=== PATIENT | male | born 1990 | race Caucasian/White ===

== ENCOUNTER 2022-07-08 07:53 | Emergency (ER) | payer OTHER, SELFPAY ==
[2022-07-08 08:01] VITALS: BP 136/80; PULSE 96; RESP 18; TEMP 36.8; O2SAT 97
--- NOTE | 2022-07-08 08:30 | DI.CT_ITS ---
Exam(s) CT ABDOMEN PELVIS WO EXAM: CT ABDOMEN PELVIS WO CLINICAL HISTORY: left flank, lower quad and testicular pain. TECHNIQUE: Imaging Protocol: Axial computed tomography images with coronal and sagittal reformatted images were created and reviewed. COMPARISON: No exams were available for comparison FINDINGS: ABDOMEN: Lung Bases: Normal where visualized. Liver: Normal density. No measurable mass. Gallbladder and biliary tract: No radiodense calculus or biliary ductal dilation. Pancreas: Normal density, no abnormal calcifications or inflammatory process. Spleen: Normal. Kidneys: Normal size, contour and axis.There is bilateral nephrolithiasis. There is a 2 mm stone at the left UVJ with mild hydronephrosis. No masses seen. Adrenal glands: No mass is seen. Lymph nodes: Within normal limits. Abdominal Aorta: Abdominal portion non-dilated. PELVIS: Bladder:Symmetric distention, no gross wall thickening. Bowel: No obstruction or bowel wall thickening. Appendix is unremarkable. Peritoneal cavity: No ascites, collection or mesenteric inflammatory response. No free air. Reproductive organs: Unremarkable as visualized. Bones: Within normal limits. Soft Tissues: Within normal limits. IMPRESSION: 2 mm left UVJ stone causing mild left hydronephrosis. RADIATION DOSE DELIVERED: 1,110.7mGy.cm Total DLP DATA REPOSITORY: All CT scans at this facility are submitted to the National Radiology Data Registry (NRDR) Dose Index Registry (DIR) with the [employer] (ACR). RADIATION OPTIMIZATION: All CT scans at this facility use at least one of these dose optimization te chniques: automated exposure control; mA and/or kV adjustment per patient size (includes targeted exa ms where dose is matched to clinical indication); or iterative reconstruction.
--- NOTE | 2022-07-08 08:34 | W.ED.GENAD ---
Discharge Plan Disposition Patient Disposition: Home Condition: Stable Discharge Details Clinical Impression: Kidney stone Primary Care Provider: None,None ED Provider: Nelia Limon Home Meds and New Rx's Prescriptions: New tamsulosin [Flomax] 0.4 mg capsule 0.4 mg PO DAILY Qty: 7 0RF oxycodone 5 mg capsule 5 mg PO Q8H PRNQty: 10 0RF ondansetron HCl 4 mg tablet 4 mg PO Q8-10H 5 Days Qty: 15 0RF Discharge Instructions Instructions: Kidney Stones (ED) Additional Instructions: Take oxycodone sparingly, this medication is addictive but definitely use it if you need it for discomfort, do not drive for 8 hours after taking this medication Ibuprofen 600 mg every 8 hours with food as needed with pain Take Zofran as needed for nausea and vomiting Strain your urine Follow-up with the urologist Return with fever, chills, or should you develop new or worsening complaints Stand Alone Forms: Work Release Referrals: Reginald Davis MD [ [facility] STAFF PHYSICIAN] - 1 day Medical Decision Making 32-year-old male who presents with left flank pain, secondary to presenting complaint and clinical exam findings, CT abdomen pelvis noncontrast was ordered to evaluate for stone or other pathology CT per radiology interpretation my review shows left UVJ stone Urinalysis with hematuria without secondary infection noted Will place on Flomax, prescription for oxycodone with risk of addiction reviewed Antiemetic prescription supplied Work note supplied Referral to urology, instructed to call tomorrow to schedule outpatient appointment in instructed to strain urine Return precautions reviewed with patient expressed understanding Medical Records Medical records reviewed: Yes I reviewed the patient's medical records. Lab Data Lab results reviewed: Yes I reviewed the patient's lab results. HPI General Date/Time Provider Initiated Documentation: 07/08/22 08:09. HPI Narrative: This 32-year-old male presents with reports of left lower quadrant, left flank pain, and left testicular pain which awoke patient from sleep at approximately 5:00 this morning. Denies history of similar symptoms in the past. Has been intermittently nauseous without vomiting. Denies any risk of sexually transmitted disease. States has had some urinary discoloration but as though he is having some urinary frequency. Denies known exacerbating or alleviating factors. Describes the pain as sharp. Related Data Home Medications Medication Instructions Recorded Confirmed ondansetron HCl 4 mg tablet 4 mg PO Q8-10H 5 days #15 tabs 07/08/22 oxycodone 5 mg capsule 5 mg PO Q8H PRN #10 caps 07/08/22 tamsulosin 0.4 mg capsule (Flomax) 0.4 mg PO DAILY #7 caps 07/08/22 Previous Rx's Medication Instructions Recorded ondansetron HCl 4 mg tablet 4 mg PO Q8-10H 5 days #15 tabs 07/08/22 oxycodone 5 mg capsule 5 mg PO Q8H PRN #10 caps 07/08/22 tamsulosin 0.4 mg capsule (Flomax) 0.4 mg PO DAILY #7 caps 07/08/22 Allergies Allergy/AdvReac Type Severity Reaction Status Date / Time No Known Allergies Allergy Unverified 07/08/22 08:07 General Stated Complaint: Male Reproductive Problem ADAM: 3 PFSH All Active Problems (Updated 07/08/22 @ 09:46 by REI Barksdale) Kidney stone (Chronic) Social History Smoking/Tobacco Use Status: Never Smoking risk assessment performed?: Yes Alcohol Intake: current Alcohol Intake frequency: holidays/special occasions only Drug use: Never Substance use type: does not use Do you feel safe at home: Yes Do you feel safe in your relationship?: Yes Exam Const General: cooperative and comfortable Resp Effort & Inspection: normal respiratory effort Cardio Rate: regular rate GI Other: cva tenderness, left Other: no testicular tenderness Skin General skin exam: no rashes or lesions noted Neuro General: patient alert and patient oriented x3 Course Vital Signs Vital signs: Vital Signs Temperature 36.8 C 07/08/22 08:01 Pulse 96 H 07/08/22 08:01 Respiratory Rate 18 07/08/22 08:01 Blood Pressure 136/80 07/08/22 08:01 Pulse Oximetry 97 07/08/22 08:01 Temperature 36.8 C 07/08/22 08:01 Temperature Source Oral 07/08/22 08:01 Pulse 96 H 07/08/22 08:01 Respiratory Rate 18 07/08/22 08:01 Respiratory Effort 07/08/22 08:05 Blood Pressure 136/80 07/08/22 08:01 Blood Pressure Position Sitting 07/08/22 08:01 Pulse Oximetry 97 07/08/22 08:01 Oxygen Delivery Method Room Air 07/08/22 08:01 Oxygen Flow Rate 0 07/08/22 08:01 Pain Level 2 07/08/22 08:01 PAWSS Have you Been Recently Intoxicated or Drunk Within the Last 30 days?: No Have you Ever Experienced Previous Episodes of Alcohol Withdrawal?: No Have you ever Experienced Withdrawal Seizures?: No Have you ever Experienced Delirium Tremens(DT)s?: No Have you ever undergone Alcohol Rehabilitation Treatment (i.e, inpt ot outpatient treatment programs)?: No Have you ever Experienced Blackouts?: No Have you ever Combined Alcohol with other Downers within the last 90 days?: No Have you ever Combined Alcohol with any other Substance of Abuse during the last 90 days?: No Result: 0
[2022-07-08] MEDS: Ondansetron 4 MG/2 ML VIAL IVP (08:37)
[2022-07-08] MEDS: Lactated Ringers 1,000 ML 1000 ML IV (08:37)
[2022-07-08] MEDS: Ketorolac 15 MG/ML VIAL IVP (08:37)
[2022-07-08 08:45] LABS: Abs Immature Grans 0.04 10^3/uL (0.0-0.06); Absolute Basophil Count 0.07 10^3/uL (0.0-0.2); Absolute Eosinophil Count 0.24 10^3/uL (0.0-0.7); Absolute Lymphocyte Count 2.68 10^3/uL (1.2-3.4); Absolute Monocyte Count 0.62 10^3/uL (0.1-0.8); Absolute Neutrophil Count 6.64 10^3/uL (1.2-6.7); Basophils % 0.7; Eosinophils % 2.3; HCT 46.1 % (40.0-50.0); HGB 15.2 g/dL (13.5-17.5); Immature Grans % 0.4; MCV 91 fL (80-95); MPV 9.3 fL (8.0-11.0); Neutrophils % 64.6; Platelet Count 241 10^3/uL (130-400); RBC 5.07 10^6/uL (4.36-5.78); RDW 12.8 % (11.8-14.1); RDW-SD 41.9 fL; WBC 10.29 10^3/uL (4.4-10.8)
[2022-07-08 09:03] LABS: Bilirubin Negative (Negative); Blood Large (Negative); Clarity Cloudy (Clear); Glucose Negative (Negative); Ketones Negative (Negative); Leukocyte Esterase Negative (Negative); Nitrite Negative (Negative); Specific Gravity >= 1.030 (1.005-1.025); Urobilinogen 0.2 EU/dL (Up TO 0.2)
[2022-07-08 09:10] LABS: ALT 48 U/L (16-63); AST 25 U/L (15-37); Albumin 4.2 g/dL (3.4-5.0); Alkaline Phosphatase 77 U/L (46-116); Anion Gap 7.3 mmol/L (3-11); BUN 10 mg/dL (7-18); Bilirubin, Total 0.4 mg/dL (0.2-1.0); CO2 29.7 mmol/L (21.0-32.0); CREATININE 1.4 mg/dL (0.70-1.30); Calcium 8.8 mg/dL (8.5-10.1); Chloride 106 mmol/L (98-107); Estimated GFR 68.49 (mL/min/1.73m2); Glucose 113 mg/dL (74-106); Lipase 31 U/L (16-77); Potassium 3.8 mmol/L (3.5-5.1); Sodium 143 mmol/L (136-145); Total Protein 7.3 g/dL (6.4-8.2)
[2022-07-08 09:12] LABS: Bacteria Few HPF (Negative); Casts Negative LPF (Negative); Crystals Negative HPF (Negative); Epithelial Cells Rare HPF (Negative); Mucus Trace (Negative); RBC 20-50 HPF (0-2); WBC 0-2 HPF (0-5)
[2022-07-08 09:13] LABS: C & S Indicated? Yes
--- NOTE | 2022-07-08 09:17 | DI.VRAD_ITS ---
PROCEDURE INFORMATION: Exam: CT Abdomen And Pelvis Without Contrast Exam date and time: 07/08/2022 8:55 AM Age: 32 years old Clinical indication: Other: Left flank, lower quad and testicular pain TECHNIQUE: Imaging protocol: Computed tomography of the abdomen and pelvis without contrast. COMPARISON: No relevant prior studies available. FINDINGS: Liver: Normal. No mass. Gallbladder and bile ducts: Normal. No calcified stones. No ductal dilation. Pancreas: Normal. No ductal dilation. Spleen: Normal. No splenomegaly. Adrenal glands: Normal. No mass. Kidneys and ureters: There is a tiny 2 mm calculus at the left ureterovesicular junction with minimal left hydronephrosis and hydroureter. There are several 2 mm calculi in the left renal collecting system. Stomach and bowel: Unremarkable. No obstruction. No mucosal thickening. Appendix: The appendix is normal. Intraperitoneal space: Unremarkable. No free air. No significant fluid collection. Vasculature: Unremarkable. No abdominal aortic aneurysm. Lymph nodes: Unremarkable. No enlarged lymph nodes. Urinary bladder: Unremarkable as visualized. Reproductive: Unremarkable as visualized. Bones/joints: Unremarkable. No acute fracture. Soft tissues: Unremarkable. IMPRESSION: 2 mm calculus at the left ureterovesicular junction with minimal left hydronephrosis and hydroureter. Dictated and Authenticated by: Bobby Cole MD. Ordering:LEANN Pickens MD
--- NOTE | 2022-07-08 09:55 | NUR.NOTE ---
Per Nelia Limon, referral to Urology for kidney stone when the next appt is available. Faxed the referral and put it in the caremanger's box for follow up assistance.Nursing Note:
[2022-07-08 10:02] VITALS: BP 125/69; PULSE 74; RESP 18; O2SAT 97
== END 2022-07-08 10:02 | disposition home or self-care (01) ==
PROVIDERS: Emergency Provider Physician Assistant
DX: N13.2 Hydronephrosis with renal and ureteral calculous obstruction (principal)
CPT/HCPCS: 36415; 80053; 83690; 96361; 96374; 96375; 99284; 74176; 81003; 81015; 85025; 87086; J1885; J2405

== ENCOUNTER 2023-10-14 06:27 | Emergency (ER) | payer OTHER, SELFPAY ==
--- NOTE | 2023-10-14 06:30 | DI.CT_ITS ---
Exam(s) CT NECK W EXAM: CT NECK W CLINICAL HISTORY: L throat/neck pain, diff swallowing, eval abscess. TECHNIQUE: Imaging Protocol: Axial computed tomography images with coronal and sagittal reformatted images were created and reviewed. CONTRAST MATERIAL: Intravenous: Omnipaque 350 Contrast volume:100mL COMPARISON: No exams were available for comparison FINDINGS: Orbits and orbital soft tissues: Within normal limits. Visualized paranasal sinuses: Mucous retention cysts are seen in the left maxillary sinus. The larg est measures 1.7 cm. The remaining visualized paranasal sinuses are clear as are the mastoid air maria del carmen ls. Nasopharynx, oropharynx and hypopharynx : There is asymmetric enlargement and heterogeneity of the le ft tonsils. There is an area of decreased attenuation centrally. The findings are suspicious for to nsillar abscess. The area measures 3.0 transverse by 2.9 AP by 4.0 craniocaudad. It does cause mild narrowing of the airway there is mild thickening of the left side of the epiglottis which is likely secondary to the adjacent tonsillitis. Larynx: Within normal limits. Retropharyngeal space: Within normal limits. Parotids/submandibular: Within normal limits. Thyroid gland: Within normal limits. Lymphadenopathy: There is scattered lymph nodes seen along the level one to level three all measurin g less than 8 mm in short axis diameter which are physiologic in nature. There are mildly enlarged re active lymph nodes in the left neck. Trachea: Within normal limits. Lung apices: Within normal limits. Bones: Within normal limits for the patient's age. There is straightening of the normal cervical george dosis. This may be due to muscle spasm or patient positioning. Carotids/Jugular: Within normal limits. Soft tissues: Within normal limits. IMPRESSION: Left tonsillar abscess measuring 3.0 x 2.9 x 4.0 cm. Reactive enlarged lymph nodes are seen in the l eft neck. RADIATION DOSE DELIVERED: 475.9mGy.cm Total DLP 475.9mGy.cm Total DLP DATA REPOSITORY: All CT scans at this facility are submitted to the National Radiology Data Registry (NRDR) Dose Index Registry (DIR) with the [employer] (ACR). RADIATION OPTIMIZATION: All CT scans at this facility use at least one of these dose optimization te chniques: automated exposure control; mA and/or kV adjustment per patient size (includes targeted exa ms where dose is matched to clinical indication); or iterative reconstruction.
[2023-10-14 06:33] VITALS: BP 153/69; PULSE 104; RESP 16; TEMP 37; O2SAT 100
[2023-10-14] MEDS: Dexamethasone 10 MG/ML VIAL IVP (06:50)
[2023-10-14] MEDS: Ketorolac 30 MG/ML VIAL IVP (06:50)
[2023-10-14] MEDS: Normal Saline 500 ML IV (07:01)
[2023-10-14 07:09] LABS: Abs Immature Grans 0.04 10^3/uL (0.0-0.06); Absolute Basophil Count 0.04 10^3/uL (0.0-0.2); Absolute Eosinophil Count 0.14 10^3/uL (0.0-0.7); Absolute Lymphocyte Count 1.34 10^3/uL (1.2-3.4); Absolute Monocyte Count 0.71 10^3/uL (0.1-0.8); Absolute Neutrophil Count 7.38 10^3/uL (1.2-6.7); Basophils % 0.4 %; Eosinophils % 1.5 %; HCT 45.2 % (40.0-50.0); HGB 15.1 g/dL (13.5-17.5); Immature Grans % 0.4 %; Lymphocytes % 13.9 %; MCH 30.9 pg (27.0-33.0); MCHC 33.4 % (32.0-36.0); MCV 93 fL (80-95); MPV 9.1 fL (8.0-11.0); Monocytes % 7.4 %; Neutrophils % 76.4 %; Platelet Count 229 10^3/uL (130-400); RBC 4.88 10^6/uL (4.36-5.78); RDW 12.8 % (11.8-14.1); RDW-SD 43.8 fL; WBC 9.65 10^3/uL (4.4-10.8)
[2023-10-14 07:12] LABS: Mono Screening Negative (Negative)
--- NOTE | 2023-10-14 07:15 | ED.GENADUL_ITS ---
Discharge Plan Discharge Details Chief Complaint: ThroatFB Primary Care Provider: None,None ED Provider: Alvarez Houston Home Meds and New Rx's Prescriptions: No Action No Known Home Meds HPI General Date/Time Provider Initiated Documentation: 10/14/23 06:40 . HPI Narrative: 33-year-old male with no significant past medical history presents today for evaluation of left-sided throat pain. Patient states that 5 days ago Saturday he developed mild left-sided sore throat. It is mild in nature, and did not cause him significant discomfort, however this morning he woke up and he had significant pain in his left throat, but also had notable difficulty swallowing, felt like he had to protrude his jaw out just to be able to get liquids down. He denies any fever, but he did take Tylenol this morning which did not significantly help. He does have a history of dental caries, but denies any focal new tooth pain. He denies any headache or posterior neck pain. He does admit to left-sided ear fullness. No vomiting or diarrhea. No other complaints at this time. Related Data Home Medications Medication Instructions Recorded Confirmed Unknown [No Known Home Meds] 10/14/23 10/14/23 Allergies Allergy/AdvReac Type Severity Reaction Status Date / Time No Known Allergies Allergy Unverified 10/14/23 06:40 General Stated Complaint: ThroatFB ADAM: 3 Review of Systems All systems reviewed & are unremarkable except as noted in HPI and below Exam Narrative Exam Narrative: 1.Const: Well-nourished, Well-developed, appearing stated age 2.Eyes: PERRL, no conjunctival injection, and symmetrical lids. 3.ENT: Atraumatic external nose and ears. Moist MM. Neck: Symmetric, trachea midline, No thyromegaly. Left tonsil is minimally enlarged, peritonsillar space appears to be slightly swollen, this leads to slight rightward deviation of the uvula. Tonsils are bilaterally erythematous. No signs of airway compromise though. Patient able to tolerate secretions well. No evidence of Ludewig's angina. Tympanic membrane's are barrera bilaterally, no large effusion. 4.CVS: +S1/S2, No murmurs or gallops. Peripheral pulses 2+ and equal in all extremities. Brisk capillary refill in all extremities. 5.RESP: Unlabored respiratory effort. Clear to auscultation bilaterally. No wheezes rales or rhonchi 6.GI: Soft, Nontender/Nondistended, No hepatosplenomegaly. No guarding or rebound. 7.MSK: Normocephalic/Atraumatic, Extremities w/o deformity or ttp No cyanosis or clubbing, Normal movement of all extremities 8.Skin: Warm, Dry. No rashes or lesions. 9.Neuro: welder experimental II-XII grossly intact. Sensation grossly intact, no focal neurologic deficits. 10.Psych: (AAO) x3. Appropriate mood and affect Course Vital Signs Vital signs: Vital Signs Temperature 37.0 C 10/14/23 06:33 Pulse 104 H 10/14/23 06:33 Respiratory Rate 16 10/14/23 06:33 Blood Pressure 153/69 H 10/14/23 06:33 Pulse Oximetry 100 10/14/23 06:33 Temperature 37.0 C 10/14/23 06:33 Temperature Source Temporal Artery Scan 10/14/23 06:33 Pulse 104 H 10/14/23 06:33 Respiratory Rate 16 10/14/23 06:33 Respiratory Effort Normal 10/14/23 06:38 Respiratory Pattern Normal 10/14/23 06:38 Blood Pressure 153/69 H 10/14/23 06:33 Pulse Oximetry 100 10/14/23 06:33 Oxygen Delivery Method Room Air 10/14/23 06:33 Oxygen Flow Rate 0 10/14/23 06:33 Pain Level 3 10/14/23 06:33 Lab/Test Results Lab/Test Results: 10/14/23 06:53 Tonsil - Not Specified Group A Streptococcus Culture - Pending Laboratory Tests Range/Units 10/14/23 07:00 WBC (4.4-10.8) 10^3/uL 9.65 RBC (4.36-5.78) 10^6/uL 4.88 Hgb (13.5-17.5) g/dL 15.1 Hct (40.0-50.0) % 45.2 MCV (80-95) fL 93 MCH (27.0-33.0) pg 30.9 MCHC (32.0-36.0) % 33.4 RDW (11.8-14.1) % 12.8 Plt Count (130-400) 10^3/uL 229 MPV (8.0-11.0) fL 9.1 Immature Gran % % 0.4 Neutrophils % % 76.4 Lymphocytes % % 13.9 Monocytes % % 7.4 Eosinophils % % 1.5 Basophils % % 0.4 Nucleated RBC % (0.0-0.3) % 0.0 Absolute Neutrophils (1.2-6.7) 10^3/uL 7.38 H Absolute Lymphocytes (1.2-3.4) 10^3/uL 1.34 Absolute Monocytes (0.1-0.8) 10^3/uL 0.71 Absolute Eosinophils (0.0-0.7) 10^3/uL 0.14 Absolute Basophils (0.0-0.2) 10^3/uL 0.04 Monoscreen (Negative) Negative POC Strep Test-SATHISH(Rapid) Start: 10/14/23 06:40 Freq: .Rapid Strep Test Status: Active Protocol: Document 10/14/23 06:52 LÁZARO (Rec: 10/14/23 06:52 LÁZARO [id number]) Strep test-SATHISH(Rapid)-POC POC-Strep test-SATHISH (Rapid) Negative POC-Strep test-SATHISH (Rapid) Negative Medical Decision Making 33-year-old male with no significant past medical history presents today for evaluation of left-sided throat pain. Patient states that 5 days ago Saturday he developed mild left-sided sore throat. It is mild in nature, and did not cause him significant discomfort, however this morning he woke up and he had significant pain in his left throat, but also had notable difficulty swallowing, felt like he had to protrude his jaw out just to be able to get liq uids down. He denies any fever, but he did take Tylenol this morning which did not significantly help. He does have a history of dental caries, but denies any focal new tooth pain. He denies any headache or posterior neck pain. He does admit to left-sided ear fullness. No vomiting or diarrhea. No other complaints at this time. Exam demonstrates swelling in the left peritonsillar space, however palpation does not reveal a large hard firm or fluctuant mass. Concern for phlegmon however subclinical peritonsillar abscess is certainly on the differential. No clear evidence of Ludewig's angina, no large periapical abscess of the teeth, however soft tissue swelling in the paratracheal region is of concern. Will get a CT scan for further assessment, get a strep test, give Decadron 10 mg and IV Toradol, rehydrate with a 500 cc fluid bolus, monitor closely and reassess. No indication at this time for emergent airway control. Will monitor closely reassess. No evidence of otitis media. Patient will be signed out to to my colleague for follow-up on labs, imaging and reassessment. Quality:[facility] Health Related Social Needs: No Data to Display [facility] Social History Smoking/Tobacco Use Status: Never Smoking risk assessment performed?: Yes Alcohol Intake: current Alcohol Intake frequency: holidays/special occasions only Drug use: Never Substance use type: does not use Do you feel safe at home: Yes Do you feel safe in your relationship?: Yes
[2023-10-14 07:22] LABS: ALT 38 U/L (16-63); AST 21 U/L (15-37); Albumin 3.6 g/dL (3.4-5.0); Alkaline Phosphatase 74 U/L (46-116); Anion Gap 6.4 mmol/L (3-11); BUN 7 mg/dL (7-18); Bilirubin, Total 0.8 mg/dL (0.2-1.0); CO2 31.6 mmol/L (21.0-32.0); Calcium 8.7 mg/dL (8.5-10.1); Chloride 103 mmol/L (98-107); Estimated GFR 101.92 (mL/min/1.73m2); Glucose 120 mg/dL (74-106); Sodium 141 mmol/L (136-145); Total Protein 7.1 g/dL (6.4-8.2)
[2023-10-14] MEDS: Omnipaque 350 MG/ML 100 ML BTL IJ (07:27)
[2023-10-14] MEDS: Normal Saline - Diluent 50 ML VIAL IJ (07:28)
--- NOTE | 2023-10-14 08:23 | DI.VRAD_ITS ---
PROCEDURE INFORMATION: Exam: CT Neck With Contrast Exam date and time: 10/14/2023 7:25 AM Age: 33 years old Clinical indication: Abscess, pharyngeal; Patient HX: L throat/neck pain, diff swallowing, eval abscess TECHNIQUE: Imaging protocol: Computed tomography of the neck with contrast. Contrast material: OMNIPAQUE 350; Contrast volume: 100 ml; Contrast route: INTRAVENOUS (IV); COMPARISON: No relevant prior studies available. FINDINGS: Pharynx: Asymmetric enlargement of the left palatine tonsil with lobulated hypodense focus measuring up to 2.7 x 1.7 cm coronal image 42 in keeping with an abscess. There is mild mass effect on the airway. Phlegmon extends into the left hypopharynx/piriform sinus. Larynx: Mild asymmetric left-sided thickening of the epiglottis. Aryepiglottic folds are unremarkable. Prevertebral and retropharyngeal spaces: Unremarkable. Salivary glands: Normal. Glands are normal in size. Thyroid: Normal. No enlarged or calcified nodules. Lymph nodes: Left lateral retropharyngeal and jugulodigastric lymphadenopathy. Trachea: Visualized trachea is unremarkable. Lungs: Unremarkable as visualized. Bones/joints: Unremarkable. No acute fracture. Soft tissues: Unremarkable. No significant soft tissue swelling. IMPRESSION: Left-sided tonsillar abscess as described. Mildly adenopathy presumed reactive as described. Mild reactive thickening of the epiglottis without CT evidence for acute epiglottitis. No retropharyngeal collection Dictated and Authenticated by: Stefan Choi MD. Ordering:MANUEL Pino MD
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
[2023-10-14] MEDS: AMPICILLIN/SULBACTAM 3 GM in Normal Saline 100 ML IVPB (09:40)
[2023-10-14 10:16] VITALS: BP 160/77; PULSE 90; RESP 16; O2SAT 97
--- NOTE | 2023-10-14 19:17 | NUR.NOTE ---
Referral to Care Management to establish pcp sooner rather than later for elevated blood pressure.Nursing Note:
== END 2023-10-14 10:24 | disposition home or self-care (01) ==
PROVIDERS: Student in an Organized Health Care Education/Training Program; Emergency Provider Student in an Organized Health Care Education/Training Program
DX: J36 Peritonsillar abscess (principal); R07.0 Pain in throat; R13.10 Dysphagia, unspecified
CPT/HCPCS: 00123; 70491; 80053; 87880; 96365; 96375; 99285; 85025; 86308; 87070; 87081; 87205; 99283; J0295; J1100; J1885; J3490